=== PATIENT | female | born 1970 | race Caucasian/White ===

== ENCOUNTER 2018-07-22 11:17 | Emergency (ER) | payer OTHER ==
--- NOTE | 2018-07-22 13:13 | EDPHY ---
H & P Stated Complaint: Nausea, dizziness, fatigue, H/A since 07/21/18. Time Seen by Provider: 07/22/18 12:54 HPI/ROS: CHIEF COMPLAINT: Nausea, dizziness HISTORY OF PRESENT ILLNESS: 47-year-old female presents with nausea and dizziness. Onset of nausea yesterday at noon while in a hot yoga class. She felt dizzy any time she stood up during the class. After the class, she ate lunch and felt somewhat better. Intermittent nausea and dizziness since then. She was in the dentist's office today and her blood pressure was 96/57. Concern for low blood pressure causing sx. She has been tolerating oral fluids and food well. She also has a mild headache today. No URI symptoms, chest pain , SOB, abdominal pain, fever or chills. REVIEW OF SYSTEMS: complete 10 point ROS reviewed and is negative except for the noted elements in the HPI - Personal History LMP (Females 10-55): 22-28 Days Ago Current Tetanus Diphtheria and Acellular Pertussis (TDAP): Yes - Medical/Surgical History Hx Asthma: No Hx Chronic Respiratory Disease: No Hx Diabetes: No Hx Cardiac Disease: No Hx Renal Disease: No Hx Cirrhosis: No Hx Alcoholism: No Hx HIV/AIDS: No Hx Splenectomy or Spleen Trauma: No Other PMH: Denies. - Social History Smoking Status: Never smoked Alcohol Use: Occasionally Drug Use: None Additional Social History: - Physical Exam Exam: General Appearance: Alert, pleasant, well-appearing Eyes: Pupils equal and round, no conjunctival pallor or injection ENT, Mouth: Mucous membranes moist Neck: Normal inspection Respiratory: Lungs are clear to auscultation Cardiovascular: Regular rate and rhythm Gastrointestinal: Abdomen is soft and nontender Neurological: A&O, nonfocal, normal gait Skin: Warm and dry Extremities: Normal inspection Psychiatric: Mood and affect normal Constitutional: Initial Vital Signs Temperature (C) 36.6 C 07/22/18 11:21 Heart Rate 79 07/22/18 11:21 Respiratory Rate 16 07/22/18 11:21 Blood Pressure 130/81 H 07/22/18 11:21 O2 Sat (%) 96 07/22/18 11:21 O2 Delivery Mode Room Air Allergies/Adverse Reactions: Penicillins Allergy (Verified 07/22/18 11:25) Home Medications: Medication Instructions Recorded Ondansetron Odt [Zofran Odt 4 mg 4 mg PO Q4 PRN #6 tab 07/22/18 (*)] Medical Decision Making - Diagnostics EKG Interpretation: EKG interpreted by me reveals normal sinus rhythm, rate 69, no ST or T segment changes. Interpretation: Normal EKG ED Course/Re-evaluation: This pt presents with intermittent nausea and dizziness. VS and PE normal. No nystagmus or vertiginous sx. stat EKG reveals no evidence of ischemia or dysrhythmia. Query low grade viral syndrome vs acute gastritis. IV NS 1 liter and Zofran 4mg IV given for nausea and possible dehydration. Labs WNL. Results d/w pt, will d/c home. Pt stable throughout. Warning signs discussed. Differential Diagnosis: Differential diagnosis includes though is not limited to cardiac dysrhythmia, CVA, TIA, GI bleed, sepsis, hypoglycemia. - Data Points Laboratory Results: Laboratory Results 07/22/18 11:50 07/22/18 11:50 Medications Given: Discontinued Medications Ondansetron HCl (Zofran) 4 mg IVP EDNOW ONE Stop: 07/22/18 13:15 Last Admin: 07/22/18 13:51 Dose: 4 mg Departure - Departure Disposition: Home, Routine, Self-Care Clinical Impression: Nausea, Dizziness Condition: Good Instructions: Dizziness (ED) Additional Instructions: Return for worsening symptoms or any concerns. Referrals: Giovani Martinez MD [Medical Doctor] - As per Instructions Prescriptions: Ondansetron Odt [Zofran Odt 4 mg (*)] 4 mg PO Q4 PRN #6 tab PRN Reason: Nausea
[2018-07-22] MEDS ORDERED: ONDANSETRON 4 MG/2 ML VIAL IVP ONE (13:14)
[2018-07-22 13:15] LABS: PLATELET COUNT 289 10^3/uL (150-400)
[2018-07-22 14:12] VITALS: BP 114/80
--- NOTE | 2018-07-22 21:41 | CPEKG ---
Test Reason : OPEN Blood Pressure : / mmHG Vent. Rate : 069 BPM Atrial Rate : 069 BPM P-R Int : 130 ms QRS Dur : 079 ms QT Int : 400 ms P-R-T Axes : 054 075 054 degrees QTc Int : 429 ms Sinus rhythm Confirmed by Nai Mooney ([id number]) on 07/22/2018 9:40:57 PM Referred By: Nai Mooney Confirmed By:Nai Mooney
== END 2018-07-22 14:11 | disposition home or self-care (01) ==
DX: R11.0 Nausea (principal); R42 Dizziness and giddiness
CPT/HCPCS: 96374; J2405